=== PATIENT | male | born 1990 | race Hispanic/Latino ===

== ENCOUNTER 2018-11-19 16:38 | Emergency (ER) | payer SELFPAY ==
[2018-11-19] MEDS ORDERED: Lidocaine 1% w/Epinephrine 1:100K 20 ML VIAL ONE (17:15)
[2018-11-19] MEDS ORDERED: Bacitracin Zinc 1 Packet ONE (18:43)
== END 2018-11-19 18:57 | disposition home or self-care (01) ==
LOC: ERS 16:38
DX: S01.81XA Laceration without foreign body of other part of head, initial encounter (principal); S01.111A Laceration without foreign body of right eyelid and periocular area, initial encounter; W22.8XXA Striking against or struck by other objects, initial encounter
CPT/HCPCS: 12051; 13132; J2001

== ENCOUNTER 2019-03-06 12:48 | Inpatient (IN) | payer SELFPAY ==
[2019-03-06 13:25] LABS: #Basophils 0.1 thou/uL (0.0-0.2); #Eosinphils 0.1 thou/uL (0.0-0.7); #Lymphocytes 1.1 thou/uL (1.20-3.40); #Monocytes 0.5 thou/uL (0.11-0.59); #Neutrophils 2.5 thou/uL (1.40-6.50); %Basophils 1.2 % (0.0-1.0); %Eosinophils 2.1 % (0.0-10.0); %Lymphocytes 25.9 % (21.0-51.0); %Monocytes 11.5 % (0.0-10.0); %Neutrophils 59.4 % (42.0-75.0); Mean Corpuscular Volume 91.1 fL (78.0-98.0); Mean Platelet Volume 9.5 fL (7.4-10.4); Platelet Count 163 thou/uL (130-400); RBC Distribution Width 13.1 % (11.5-14.5); Red Blood Cell (RBC) Count 5.15 mill/uL (4.70-6.10); White Blood Cell (WBC) Count 4.2 thou/uL (4.8-10.8)
[2019-03-06 13:39] LABS: ALT (SGPT) 1368 U/L (8-55); AST (SGOT) 806 U/L (5-34); Albumin 4.5 g/dL (3.5-5.0); Alkaline Phosphatase 181 U/L (40-150); Anion Gap 13 mmol/L (10-20); BUN (Urea Nitrogen) 9 mg/dL (8.9-20.6); Bilirubin, Total 4.1 mg/dL (0.2-1.2); Calc. Creatinine Clearance 0 mL/min (70-130); Calcium 9.9 mg/dL (7.8-10.44); Carbon Dioxide 24 mmol/L (22-29); Chloride 99 mmol/L (98-107); Estimated GFR-MDRD 82; Glucose 461 mg/dL (70-105); Potassium 4.2 mmol/L (3.5-5.1); Protein, Total 8.5 g/dL (6.0-8.3); Sodium 132 mmol/L (136-145)
--- NOTE | 2019-03-06 15:33 | ULT ---
ULTRASOUND GALLBLADDER RIGHT UPPER QUADRANT: CLINICAL HISTORY: Elevated bilirubin and liver enzymes. COMPARISON: None. FINDINGS: Pancreas: Obscured by bowel gas. Liver:Heterogeneous echotexture which may be due to hepatic steatosis or hepatocellular disease. Limi luisa evaluation for hepatic masses and intrahepatic biliary dilatation. Right hepatic lobe measures 19.6 cm. Portal vein: Patent with appropriate directional flow. Gallbladder: Echogenic focus within the lumen of the gallbladder, nonshadowing, nonmobile. Findings m ay represent an adherent nonshadowing stone. Additionally, there does appear to be sludge. Gallbladder wall is not thickened. No pericholecystic fluid. Thrasher's sign:Negative. Bile ducts: Limited evaluation due to bowel gas. Right kidney: No hydronephrosis. Right kidney measures 10.7 cm cm in length. IMPRESSION: 1. Hepatomegaly. 2. Increased echotexture of liver which may be due to hepatic steatosis or hepatocellular disease. If there is concern for hepatic masses, liver mass protocol CT can be performed. 3. Sonographic evidence of cholelithiasis and sludge. No evidence for cholecystitis. HIDA scan may be beneficial. 4. Suboptimal evaluation of the common bile duct. Transcribed Date/Time: 03/06/2019 3:38 PM
[2019-03-06 18:59] VITALS: BMI 25.7
[2019-03-06] MEDS ORDERED: Bisacodyl 5 MG TAB PO PRN (19:16)
[2019-03-06] MEDS ORDERED: Dextrose 50% Abboject 50 ML SYRINGE SLOW IVP PRN (19:16)
[2019-03-06] MEDS ORDERED: Dextrose 5% in Water 1,000 ML IV PRN (19:16)
--- NOTE | 2019-03-06 20:31 | HP ---
PRIMARY CARE PROVIDER: Dr. Rocio Mccarthy. CHIEF COMPLAINT: Abnormal liver function tests. HISTORY OF PRESENT ILLNESS: Mr. Zhou is a pleasant 28-year-old gentleman who was seen at [facility] on March 06, 2019. He reports that 2 days ago he went for his annual physical exam. He had blood work done. He was called by the office that he has diabetes mellitus as well as abnormal liver function tests. He was advised to go to the emergency room. The patient reports that he used to drink 6-pack beer daily for 2 years until the end of last year, at which point he decreased the frequency to occasional. He denies any fevers or chills. He denies any recent travel. He denies any nausea, vomiting, or diarrhea. He denies any abdominal pain. The patient also reports that he has been having muscle aches over his back over the last few days. REVIEW OF SYSTEMS: All systems were reviewed and found to be negative except for the pertinent positives mentioned above. ALLERGIES: NO KNOWN DRUG ALLERGIES. CURRENT MEDICATIONS: He takes a medication for diabetes two times a day, is unsure which medication it is. PAST MEDICAL HISTORY: Diabetes mellitus type 2. PAST SURGICAL HISTORY: None. SOCIAL HISTORY: No history of tobacco use or recreational drug use. The patient drinks alcohol occasionally. He works in maintenance. FAMILY HISTORY: Liver disease in his maternal grandfather. PHYSICAL EXAMINATION: GENERAL: On examination, Mr. Zhou is awake and alert, not in acute distress. VITAL SIGNS: Blood pressure is 132/83, pulse 81, respiratory rate 16, and oxygen saturation 100% on room air. He is afebrile. EYES: The patient has scleral icterus. No conjunctival pallor. ENT: Moist mucosal membranes. No oropharyngeal erythema or exudates. NECK: Supple, nontender, trachea is midline. RESPIRATORY: Accessory muscles of breathing are not active. Chest wall movements are symmetric bilaterally. LUNGS: Clear to auscultation without wheeze, rhonchi, or crepitations. CARDIOVASCULAR: S1 and S2 are heard, regular. Peripheral pulses palpable. No carotid bruit. No pericardial rub. ABDOMEN: Soft, nontender. Thrasher sign is negative. No guarding or rigidity. Bowel sounds are heard. NEUROLOGIC: Cranial nerves 2 through 12 are intact. MUSCULOSKELETAL: Power is 5/5 in all 4 extremities. SKIN: No rashes or subcutaneous nodules. LYMPHATIC: No cervical lymphadenopathy. PSYCHIATRIC: Normal mood, normal affect. The patient is oriented to person, place, and time. LABORATORY DATA: Mr. Zhou's labs and investigations were reviewed. He has leukopenia with 4200 white cells, normal hemoglobin, normal platelet count, decreased sodium of 132, normal potassium, elevated glucose of 461, elevated total bilirubin of 4.1, elevated AST of 806, elevated ALT of 1368, elevated alkaline phosphatase of 181, and elevated globulin of 4.0. ASSESSMENT AND PLAN: Mr. Zhou is a pleasant 28-year-old gentleman who was seen at [facility] on March 06, 2019. His problem list includes: 1. Abnormal LFTs: Mr. Zhou is presenting with abnormal LFTs. He will be admitted to the hospital for further management. He had an abdominal ultrasound done, which showed hepatomegaly and increased echotexture of liver, which may be due to hepatic steatosis or hepatocellular disease. Radiologist recommends a liver mass protocol CT if there is concern for hepatic masses. He had sonographic evidence of cholelithiasis and sludge, no evidence for cholecystitis. Common bile duct evaluation was suboptimal. We will check acute hepatitis profile. GI Service has been consulted, we will await their input. 2. Diabetes mellitus type 2: We will start the patient on Accu-Cheks and insulin sliding scale. We will resume home diabetes medication once confirmed. 3. Hyponatremia: Mild, likely asymptomatic. Many thanks for allowing me to participate in your patient's care. Please feel free to contact me with any questions or concerns. LEVEL OF RISK: Moderate. LEVEL OF COMPLEXITY: Moderate. Job ID: [id number]
[2019-03-06 22:30] LABS: HBCM Index 0.07 S/CO (0-0.79); HBSAg Index 0.14 S/CO (0-0.99); Hep A IgM AB Non-Reactive (NonReactive); Hep A IgM S/CO 0.18 S/CO (0-0.79); Hep B Surf Ag Non-Reactive S/CO (NonReactive); Hep C IgG Ab Non-Reactive (NonReactive); Hep C Index 0.11 S/CO (0-0.79); Hepatitis B Core IgM Abs Non-Reactive (NonReactive)
[2019-03-07 00:26] LABS: Acetaminophen Less than 6.0 mcg/mL (10.0-30.0)
[2019-03-07 01:29] LABS: Amphetamine Not Detected (NotDetected); Barbiturates Screen Not Detected (NotDetected); Benzodiazepine Screen Not Detected (NotDetected); Cocaine Metabolite Screen Not Detected (NotDetected); Medtox Control Line Valid? VALID (VALID); Medtox Reader # READER 4; Methadone Not Detected (NotDetected); Methamphetamine Not Detected (NotDetected); Opiate Screen Not Detected (NotDetected); Oxycodone Screen Not Detected (NotDetected); Phencyclidine (PCP) Not Detected (NotDetected); THC/Cannabinoid Screen Not Detected (NotDetected); Tricyclic Screen Not Detected (NotDetected)
--- NOTE | 2019-03-07 03:05 | CON ---
DATE OF CONSULTATION: 03/06/2019 CHIEF COMPLAINT: Abnormal liver tests. HISTORY OF PRESENT ILLNESS: Mr. Zhou is a 28-year-old man who presented to his primary care doctor for routine evaluation at [facility]. He had a liver tests drawn that showed they are significantly elevated, so he was advised to come to the emergency room for further care. He reports he has had some aching discomfort in his lower back bilaterally for the last 2 weeks. His urine has been dark for the last couple of weeks. He has also had some night sweats for the last 2 weeks. He has had no nausea or vomiting. No diarrhea, constipation, or blood in the stool. No weight changes. He states that he was told that his liver tests were mildly elevated related to being overweight back in 2013. He had an ultrasound in the emergency room that showed a prominent liver with heterogeneity and possible gallstones. His viral hepatitis screen was negative. He has had no prior episodes of severely elevated liver tests. PAST MEDICAL HISTORY: Has been otherwise negative. He also was found to have elevated blood glucose with a new diagnosis of diabetes with this blood draw a couple of days ago. PAST SURGICAL HISTORY: Negative. FAMILY HISTORY: Negative for GI malignancy or liver disease. SOCIAL HISTORY: He has cocaine in the remote past. Occasional alcohol. He did drink up to 6 pack a day for a couple of years, but lately over the last several months, only drinks occasionally. No smoking. No recent drug use. ALLERGIES: NO KNOWN DRUG ALLERGIES. MEDICATIONS: Prior to admission, none. He was just prescribed a new medicine for diabetes a couple of days ago. He is unsure what this is. He takes no other supplements, [id number]. REVIEW OF SYSTEMS: Negative x10 systems reviewed except as stated in the history of present illness. PHYSICAL EXAMINATION: VITAL SIGNS: Pulse 87, blood pressure 126/87, temperature is 99.1. GENERAL: He is in no acute distress. Alert and oriented x3. HEENT: Eyes have slight scleral icterus. Oropharynx is clear without lesions. NECK: No cervical or supraclavicular lymphadenopathy. LUNGS: Clear to auscultation bilaterally. HEART: Regular rate and rhythm without murmur. ABDOMEN: Soft, nontender, and nondistended. Bowel sounds are present. EXTREMITIES: No lower extremity edema. NEUROLOGIC: Reveals no asterixis. LABORATORY DATA: Creatinine 1.07, glucose 461, bilirubin 4.1, AST 806, ALT 1368, alkaline phosphatase 181, albumin 4.5, globulin is 4.0 with a total protein of 8.5. Viral hepatitis A IgM is negative. Hepatitis B surface antigen is negative. Hepatitis B core IgM is negative. Hepatitis C antibody is negative. White blood cell count 4.2, hemoglobin 16.0, platelets 163, eosinophilic count is 2.1%. IMAGING: There are possible gallstones by ultrasound. The bile duct was not well visualized. There is hepatic steatosis versus hepatocellular disease as a cause of heterogeneous echotexture to the liver. IMPRESSION: 1. Abnormal liver tests. He has acute hepatocellular injury pattern with ALT over 1000. His acute viral hepatitis screen is negative for A, B and C. Possibilities include toxic liver injury or drug-induced liver injury. We will need to check a urine tox screen. Autoimmune liver disease is probably top of the list given the elevated globulin and insidious onset of these symptoms with no other significant GI symptoms associated. 2. I will send additional blood work looking for other causes of liver disease as well. 3. Cholelithiasis. I doubt that choledocholithiasis is causing the elevated transaminases and bilirubin with only mild elevation in alkaline phosphatase. The common bile duct, however, was not well visualized by ultrasound and this will need further evaluation with MRI. 4. New onset diabetes mellitus. RECOMMENDATIONS: 1. MRCP tomorrow morning. 2. Blood work including a smooth muscle antibody, mitochondrial antibody, alpha-1 antitrypsin level, ceruloplasmin, iron saturation. If those are negative, then we would also check serology for HSV, CMV and EBV. Job ID: [id number]
[2019-03-07 05:57] LABS: #Basophils 0.1 thou/uL (0.0-0.2); #Eosinphils 0.2 thou/uL (0.0-0.7); #Lymphocytes 1.5 thou/uL (1.20-3.40); #Monocytes 0.4 thou/uL (0.11-0.59); #Neutrophils 2.1 thou/uL (1.40-6.50); %Basophils 1.7 % (0.0-1.0); %Eosinophils 4.4 % (0.0-10.0); %Lymphocytes 34.5 % (21.0-51.0); %Monocytes 10.5 % (0.0-10.0); %Neutrophils 48.9 % (42.0-75.0); Hemoglobin 15.6 g/dL (14.0-18.0); Mean Corpuscular HGB CONC 34.6 g/dL (32.0-36.0); Mean Corpuscular Hemoglobin 31.6 pg (27.0-31.0); Mean Corpuscular Volume 91.4 fL (78.0-98.0); Mean Platelet Volume 9.4 fL (7.4-10.4); Platelet Count 151 thou/uL (130-400); RBC Distribution Width 13.4 % (11.5-14.5); Red Blood Cell (RBC) Count 4.94 mill/uL (4.70-6.10); White Blood Cell (WBC) Count 4.2 thou/uL (4.8-10.8)
[2019-03-07 06:14] LABS: ALT (SGPT) 1241 U/L (8-55); AST (SGOT) 782 U/L (5-34); Albumin 4.1 g/dL (3.5-5.0); Alkaline Phosphatase 136 U/L (40-150); Anion Gap 13 mmol/L (10-20); BUN (Urea Nitrogen) 10 mg/dL (8.9-20.6); Bilirubin, Total 3.9 mg/dL (0.2-1.2); Calc. Creatinine Clearance 151 mL/min (70-130); Calcium 9.3 mg/dL (7.8-10.44); Carbon Dioxide 23 mmol/L (22-29); Chloride 100 mmol/L (98-107); Estimated GFR-MDRD Greater than 90; Globulin 3.9 g/dL (2.4-3.5); Glucose 251 mg/dL (70-105); Iron 155 ug/dL (65-175); Iron Binding Capacity, Total 371 mcg/dL (261-462); Potassium 3.8 mmol/L (3.5-5.1); Sodium 132 mmol/L (136-145)
[2019-03-07] MEDS: Enoxaparin Sodium 40 MG/0.4 ML SYRINGE SC SCH (10:15)
[2019-03-07] MEDS ORDERED: Gadobenate Dimeglumine 529 MG/1 ML (20ML VIAL) ONE (12:59)
--- NOTE | 2019-03-07 15:01 | MRI ---
MRI ABDOMEN WITH AND WITHOUT CONTRAST MRCP: Date: 03/07/19 INDICATION: Abnormal liver function tests. Exam is severely limited due to patient motion. Multiple repeat sequences were obtained; however, all sequences are degraded. FINDINGS: Liver, spleen, and pancreas appear unremarkable. Gallbladder and biliary ducts appear unremarkable. N o evidence of biliary duct dilatation. Common duct is not well seen due to its normal size; however, there is no evidence of common duct lesion or dilatation. Stomach and duodenum unremarkable. Visualized bowel loops unremarkable. Aorta normal caliber. No manuel opathy. Visualized adrenal glands and kidneys are unremarkable. IMPRESSION: Limited exam due to patient motion. No abnormality identified. POS: OFF
[2019-03-07] MEDS ORDERED: hydrOXYzine Pamoate 25 mg Capsule PO PRN (16:16)
--- NOTE | 2019-03-07 16:23 | PDOC.HOSPP ---
- Subjective Encounter Date: 03/07/19 Encounter Time: 15:30 Subjective: Pt seen for followup re: abnormal LFTs. Says he feels well, no complaints. - Objective Vital Signs & Weight: Vital Signs (12 hours) Temp Pulse Resp BP Pulse Ox 03/07/19 16:00 98.4 F 78 18 133/80 99 03/07/19 08:30 98 03/07/19 08:00 98.3 F 74 20 138/83 98 Weight Admit Weight 179 lb Weight 179 lb I&O: 03/06/19 03/07/19 03/08/19 06:59 06:59 06:59 Intake Total 400 Balance 400 Result Diagrams: 03/07/19 05:34 03/07/19 05:34 Additional Labs: Accuchecks 03/07/19 03/06/19 05:24 21:02 POC Glucose 208 H 250 H Hospitalist ROS - Review of Systems Cardiovascular: denies: chest pain, palpitations, orthopnea, paroxysmal noc. dyspnea, edema, light headedness Gastrointestinal: denies: nausea, vomiting, abdominal pain, diarrhea, constipation, melena, hematochezia - Medication Medications: Active Medications Generic Name Dose Route Start Last Admin Trade Name Freq PRN Reason Stop Dose Admin Enoxaparin Sodium 40 mg 03/07/19 09:00 03/07/19 10:15 Lovenox SC Not Given 0900 FERN - Exam General Appearance: NAD Eye: scleral icterus ENT: normocephalic atraumatic Neck: supple Heart: RRR Respiratory: CTAB, no rales Gastrointestinal: soft, non-tender, non-distended, normal bowel sounds Neurological: no weakness Psychiatric: normal affect, normal behavior Hosp A/P (1) Abnormal LFTs Code(s): R94.5 - ABNORMAL RESULTS OF LIVER FUNCTION STUDIES Status: Acute (2) DM2 (diabetes mellitus, type 2) Status: Acute - Plan out of bed/ambulate Workup in progress. Follow LFTs. Start diabetic diet. Continue accuchecks, insulin sliding scale. Continue sitagliptin (recently diagnosed diabetes mellitus).
--- NOTE | 2019-03-07 19:48 | PRG ---
DATE OF SERVICE: 03/07/2019 SUBJECTIVE: Mr. Zhou has less lower back discomfort today. He has no nausea, vomiting, or abdominal pain. He is tolerating a solid diet. His urine again was dark this morning, but it becomes more clear when he drinks more water. OBJECTIVE: VITAL SIGNS: Temperature 98.5, pulse 91, and blood pressure 129/79. GENERAL: He is in no acute distress. Alert and oriented x3. Slight scleral icterus. Oropharynx is clear without lesions. No cervical or supraclavicular lymphadenopathy. LUNGS: Clear to auscultation bilaterally. HEART: Regular rate and rhythm without murmur. ABDOMEN: Soft, nontender, nondistended. Bowel sounds are present. EXTREMITIES: No lower extremity edema. LABORATORY DATA: White blood cell count 4.2, hemoglobin 15.6, and platelets 151. Bilirubin 3.9, AST 782, ALT 1241, alkaline phosphatase 136, and albumin 4.1. Toxicology screen was negative. IMPRESSION: Abnormal liver function test. The MRI showed a normal caliber common bile duct. He does have stones in the gallbladder, but this does not appear to be related to his acute elevation of his liver tests. His acute viral hepatitis screen was negative. At this point, I would favor autoimmune hepatitis as the most likely given the elevated globulin and otherwise negative source for severe acute hepatitis with an ALT greater than 1000. Additional blood work is pending including alpha-1 antitrypsin level and ceruloplasmin. His iron saturation is not significantly elevated. We will await the autoimmune markers. If this is negative, then I would check HSV, CMV, and EBV. RECOMMENDATIONS: 1. Recheck liver tests in the morning including INR. 2. Await smooth muscle antibody. 3. If the smooth muscle antibody is negative and SANDOR is negative, then next step would be checking an additional viral study as noted above. Job ID: [id number]
[2019-03-07] MEDS ORDERED: Alogliptin 25 MG TAB PO SCH (20:15)
[2019-03-08] MEDS: HumaLOG 300 UNITS/3 ML VIAL SC PRN ×4 (05:55→20:44)
[2019-03-08 06:49] LABS: #Basophils 0.1 thou/uL (0.0-0.2); #Eosinphils 0.2 thou/uL (0.0-0.7); #Lymphocytes 1.7 thou/uL (1.20-3.40); #Monocytes 0.5 thou/uL (0.11-0.59); #Neutrophils 2.6 thou/uL (1.40-6.50); %Basophils 1.6 % (0.0-1.0); %Eosinophils 3.8 % (0.0-10.0); %Lymphocytes 33.5 % (21.0-51.0); %Monocytes 10.4 % (0.0-10.0); %Neutrophils 50.7 % (42.0-75.0); Mean Corpuscular HGB CONC 32.7 g/dL (32.0-36.0); Mean Corpuscular Volume 91.8 fL (78.0-98.0); Mean Platelet Volume 9.3 fL (7.4-10.4); Platelet Count 175 thou/uL (130-400); Prothrombin Time 13.5 SEC (12.0-14.7); RBC Distribution Width 13.3 % (11.5-14.5); Red Blood Cell (RBC) Count 5.33 mill/uL (4.70-6.10); White Blood Cell (WBC) Count 5.2 thou/uL (4.8-10.8)
[2019-03-08 07:07] LABS: ALT (SGPT) 1271 U/L (8-55); AST (SGOT) 849 U/L (5-34); Albumin 4.2 g/dL (3.5-5.0); Alkaline Phosphatase 154 U/L (40-150); Anion Gap 11 mmol/L (10-20); BUN (Urea Nitrogen) 11 mg/dL (8.9-20.6); Bilirubin, Total 3.3 mg/dL (0.2-1.2); Calc. Creatinine Clearance 142 mL/min (70-130); Calcium 9.2 mg/dL (7.8-10.44); Carbon Dioxide 25 mmol/L (22-29); Chloride 100 mmol/L (98-107); Estimated GFR-MDRD Greater than 90; Glucose 228 mg/dL (70-105); Potassium 3.8 mmol/L (3.5-5.1); Protein, Total 8.2 g/dL (6.0-8.3); Sodium 132 mmol/L (136-145)
[2019-03-08] MEDS: Alogliptin 25 MG TAB PO SCH (08:11)
[2019-03-08] MEDS: Enoxaparin Sodium 40 MG/0.4 ML SYRINGE SC SCH (08:11)
--- NOTE | 2019-03-08 10:58 | PRG ---
DATE OF SERVICE: 03/08/2019 SUBJECTIVE: Mr. Zhou has no abdominal pain. No back pain. No nausea, vomiting, diarrhea, or fever. OBJECTIVE: VITAL SIGNS: Temperature 98.5, pulse is 72, and blood pressure 128/78. GENERAL: He is in no acute distress. Alert and oriented x3. LUNGS: Clear to auscultation bilaterally. HEART: Regular rate and rhythm without murmur. ABDOMEN: Soft, nontender, and nondistended. Bowel sounds are present. EXTREMITIES: No lower extremity edema. LABORATORY DATA: Creatinine 0.88, bilirubin 3.3, AST 849, ALT 1271, and alkaline phosphatase 154. IMPRESSION: Abnormal liver tests with acute hepatocellular injury pattern. I would favor autoimmune hepatitis as being the most likely diagnosis at this point. I am awaiting labs for autoimmune markers. Additional labs for other causes of liver disease are pending as well. RECOMMENDATIONS: 1. We will continue to await lab results. 2. We will check hepatitis B antibody. Job ID: [id number]
[2019-03-08 14:05] LABS: Reference Lab Name LABCORP
--- NOTE | 2019-03-08 16:35 | PDOC.HOSPP ---
- Subjective Encounter Date: 03/08/19 Encounter Time: 09:20 Subjective: Pt seen for followup re: abnormal LFTs. Denies any complaints. - Objective Vital Signs & Weight: Vital Signs (12 hours) Temp Pulse Resp BP Pulse Ox 03/08/19 12:05 98.1 F 67 18 131/84 97 03/08/19 08:00 98.5 F 72 16 128/78 98 Weight Admit Weight 179 lb Weight 179 lb I&O: 03/07/19 03/08/19 03/09/19 06:59 06:59 06:59 Intake Total 400 Balance 400 Result Diagrams: 03/08/19 06:09 03/08/19 06:09 Additional Labs: Accuchecks 03/08/19 03/08/19 03/07/19 11:44 05:54 21:00 POC Glucose 286 H 212 H 264 H 03/07/19 03/07/19 16:07 12:27 POC Glucose 244 H 230 H Labs and MARs reviewed by az Hospitalist ROS - Review of Systems Cardiovascular: denies: chest pain, palpitations, orthopnea, paroxysmal noc. dyspnea, edema, light headedness Gastrointestinal: denies: nausea, vomiting, abdominal pain, diarrhea, constipation, melena, hematochezia - Medication Medications: Active Medications Generic Name Dose Route Start Last Admin Trade Name Freq PRN Reason Stop Dose Admin Alogliptin Benzoate 25 mg 03/08/19 09:00 03/08/19 08:11 Alogliptin PO 25 mg DAILY FERN Administration Enoxaparin Sodium 40 mg 03/07/19 09:00 03/08/19 08:11 Lovenox SC Not Given 09 [facility] Insulin Human Lispro 0 units 03/06/19 19:16 03/08/19 12:16 Humalog SC 4 unit .MILD SLIDING SCALE PRN Administration Mild Correctional Scale - Exam General Appearance: NAD Eye: scleral icterus ENT: no oropharyngeal lesions Neck: supple Heart: RRR, no gallops Respiratory: CTAB, no ronchi Gastrointestinal: soft, non-tender Extremities: no clubbing Musculoskeletal: normal tone, normal strength Psychiatric: normal affect, normal behavior Hosp A/P (1) Abnormal LFTs Code(s): R94.5 - ABNORMAL RESULTS OF LIVER FUNCTION STUDIES Status: Acute (2) DM2 (diabetes mellitus, type 2) Status: Acute - Plan plan discussed w/ family Workup in progress re; abnormal LFTs. GI service following. Continue 1800 jemima diet. Continue sitagliptin, continue accuchecks, switch to moderate insulin sliding scale.
[2019-03-09] MEDS: HumaLOG 300 UNITS/3 ML VIAL SC PRN ×3 (05:16→21:18)
[2019-03-09 05:41] LABS: #Basophils 0.1 thou/uL (0.0-0.2); #Eosinphils 0.2 thou/uL (0.0-0.7); #Monocytes 0.6 thou/uL (0.11-0.59); #Neutrophils 2.3 thou/uL (1.40-6.50); %Basophils 1.3 % (0.0-1.0); %Eosinophils 4.2 % (0.0-10.0); %Lymphocytes 38.6 % (21.0-51.0); %Monocytes 11.8 % (0.0-10.0); %Neutrophils 44.2 % (42.0-75.0); Hemoglobin 15.6 g/dL (14.0-18.0); Mean Corpuscular HGB CONC 33.7 g/dL (32.0-36.0); Mean Corpuscular Volume 91.8 fL (78.0-98.0); Mean Platelet Volume 9.2 fL (7.4-10.4); Platelet Count 174 thou/uL (130-400); RBC Distribution Width 13.3 % (11.5-14.5); Red Blood Cell (RBC) Count 5.04 mill/uL (4.70-6.10); White Blood Cell (WBC) Count 5.1 thou/uL (4.8-10.8)
[2019-03-09 06:00] LABS: ALT (SGPT) 1143 U/L (8-55); AST (SGOT) 705 U/L (5-34); Alkaline Phosphatase 148 U/L (40-150); Anion Gap 10 mmol/L (10-20); BUN (Urea Nitrogen) 10 mg/dL (8.9-20.6); Bilirubin, Total 3.3 mg/dL (0.2-1.2); Calc. Creatinine Clearance 136 mL/min (70-130); Calcium 9.2 mg/dL (7.8-10.44); Carbon Dioxide 25 mmol/L (22-29); Chloride 101 mmol/L (98-107); Estimated GFR-MDRD Greater than 90; Globulin 3.7 g/dL (2.4-3.5); Glucose 240 mg/dL (70-105); Potassium 3.8 mmol/L (3.5-5.1); Protein, Total 7.7 g/dL (6.0-8.3); Sodium 132 mmol/L (136-145)
[2019-03-09] MEDS: Enoxaparin Sodium 40 MG/0.4 ML SYRINGE SC SCH (07:37)
[2019-03-09] MEDS: Alogliptin 25 MG TAB PO SCH (07:37)
[2019-03-09 12:09] LABS: Smooth Muscle Total ABS 12 Units (0-19)
--- NOTE | 2019-03-09 13:02 | PRG ---
DATE OF SERVICE: 03/09/2019 SUBJECTIVE: Mr. Zhou has no abdominal pain. No pruritus. No nausea or vomiting. OBJECTIVE: VITAL SIGNS: Temperature 98.1, pulse 70, blood pressure 117/72. GENERAL: He is in no acute distress. Alert and oriented x3. LUNGS: Clear to auscultation bilaterally. HEART: Regular rate and rhythm without murmur. ABDOMEN: Soft, nontender, and nondistended. Bowel sounds are present. EXTREMITIES: No lower extremity edema. LABORATORY DATA: White blood cell count 5.1, hemoglobin 15.6, platelets 174. INR 1.0. Bilirubin 3.3, AST 705, ALT 1143, alkaline phosphatase 148, creatinine 0.92, albumin 4.0. IMPRESSION: Abnormal liver function tests with acute hepatocellular injury pattern. His viral hepatitis A, B, and C are negative. Toxicology screen was negative. His globulin has been elevated, and the top of my differential was autoimmune hepatitis; however, this morning his smooth muscle antibodies come back normal level at 12. Still we will need to check mitochondrial antibody and I would add a total immunoglobulin G level at this point. The cause of his liver disease is not determined. He might ultimately require a liver biopsy as a next step. RECOMMENDATIONS: 1. Check total immunoglobulin G level. 2. Await mitochondrial antibody and antinuclear antibody. Job ID: [id number]
[2019-03-09 15:10] LABS: Alpha-1-Antitrypsin 152 mg/dL (90-200)
--- NOTE | 2019-03-09 22:49 | PDOC.HOSPP ---
- Subjective Encounter Date: 03/09/19 Encounter Time: 14:00 Subjective: Patient seen and examined for abn LFTs. No fever/N/V. No new complaints. No overnight events - Objective Vital Signs & Weight: Vital Signs (12 hours) Temp Pulse Resp BP Pulse Ox 03/09/19 19:32 97.9 F 73 16 130/75 99 Weight Admit Weight 179 lb Weight 179 lb I&O: 03/08/19 03/09/19 03/10/19 06:59 06:59 06:59 Intake Total 1500 Balance 1500 Result Diagrams: 03/09/19 05:07 03/09/19 05:07 Additional Labs: Accuchecks 03/09/19 03/09/19 03/09/19 20:57 11:17 04:24 POC Glucose 307 H 237 H 243 H Laboratory Tests 03/07/19 03/07/19 03/07/19 05:34 05:34 05:34 Ferritin 333.74 H Total Bilirubin 3.9 H Sogaf-6-Lytytmtnkkh 152 IgG Total Smooth Muscle Ab Titer 12 03/10/19 04:40 Ferritin Total Bilirubin Tsuwt-9-Rrzeijdkarq IgG Total 1807.00 Smooth Muscle Ab Titer Radiology Reviewed by me: Yes (MRI - reviewed) Hospitalist ROS - Review of Systems Respiratory: denies: cough, dry, shortness of breath, hemoptysis, SOB with excertion, pleuritic pain, sputum, wheezing, other Cardiovascular: denies: chest pain, palpitations, orthopnea, paroxysmal noc. dyspnea, edema, light headedness, other - Medication Medications: Active Medications Generic Name Dose Route Start Last Admin Trade Name Freq PRN Reason Stop Dose Admin Insulin Human Lispro 0 units 03/06/19 23:39 03/09/19 21:18 Humalog SC 4 unit .BEDTIME SLIDING SC PRN Administration Bedtime Correctional Scale Insulin Human Lispro 0 units 03/08/19 16:40 03/09/19 11:49 Humalog SC 4 units .MODERATE SLIDING SC PRN Administration Moderate Correctional Scale - Exam General Appearance: NAD Heart: RRR, no rubs Respiratory: CTAB, no rales Gastrointestinal: soft, non-tender, normal bowel sounds Extremities: no edema Hosp A/P (1) Abnormal LFTs Code(s): R94.5 - ABNORMAL RESULTS OF LIVER FUNCTION STUDIES Status: Acute (2) DM2 (diabetes mellitus, type 2) Status: Chronic (3) Hyponatremia Code(s): E87.1 - HYPO-OSMOLALITY AND HYPONATREMIA Status: Acute - Plan DVT proph w/SCDs Cont to monitor LFTs in AM Await w/u for abn LFTs Add Lantus 10 units daily Hold Alogliptin
[2019-03-10 05:56] LABS: ALT (SGPT) 1121 U/L (8-55); AST (SGOT) 635 U/L (5-34); Albumin 4.1 g/dL (3.5-5.0); Alkaline Phosphatase 144 U/L (40-150); Bilirubin, Direct 2.3 mg/dL (0.1-0.3); Bilirubin, Total 3.3 mg/dL (0.2-1.2); Protein, Total 7.9 g/dL (6.0-8.3)
[2019-03-10] MEDS: Insulin Glargine 10 UNITS in Pre-Filled Syringe 1 EACH SC SCH (07:41)
[2019-03-10] MEDS: HumaLOG 300 UNITS/3 ML VIAL SC PRN ×2 (12:50→16:52)
--- NOTE | 2019-03-10 20:19 | PDOC.HOSPP ---
- Subjective Encounter Date: 03/10/19 Encounter Time: 18:30 Subjective: Patient seen and examined for abn LFTs. No N/V. No new complaints. No overnight events - Objective Vital Signs & Weight: Vital Signs (12 hours) Temp Pulse Resp BP Pulse Ox 03/10/19 19:35 97.9 F 69 16 134/81 99 Weight Admit Weight 179 lb Weight 179 lb I&O: 03/09/19 03/10/19 03/11/19 06:59 06:59 06:59 Intake Total 2500 1500 Balance 2500 1500 Result Diagrams: 03/09/19 05:07 03/09/19 05:07 Additional Labs: Accuchecks 03/10/19 03/10/19 03/10/19 19:53 16:42 11:55 POC Glucose 121 H 186 H 249 H 03/10/19 03/09/19 03/09/19 05:55 20:57 16:54 POC Glucose 148 H 307 H 140 H Hospitalist ROS - Review of Systems Respiratory: denies: cough, dry, shortness of breath, hemoptysis, SOB with excertion, pleuritic pain, sputum, wheezing, other Cardiovascular: denies: chest pain, palpitations, orthopnea, paroxysmal noc. dyspnea, edema, light headedness, other - Medication Medications: Active Medications Generic Name Dose Route Start Last Admin Trade Name Freq PRN Reason Stop Dose Admin Insulin Glargine 10 units/ 0.1 mls @ 0 mls/hr 03/10/19 09:00 03/10/19 07:41 Miscellaneous Medication SC 0.1 mls QAM FERN Administration Insulin Human Lispro 0 units 03/06/19 23:39 03/09/19 21:18 Humalog SC 4 unit .BEDTIME SLIDING SC PRN Administration Bedtime Correctional Scale Insulin Human Lispro 0 units 03/08/19 16:40 03/10/19 16:52 Humalog SC 2 units .MODERATE SLIDING SC PRN Administration Moderate Correctional Scale - Exam General Appearance: NAD Neck: supple, no JVD Heart: RRR, no rubs Respiratory: CTAB, no rales Gastrointestinal: soft, non-tender, normal bowel sounds Extremities: no edema Hosp A/P (1) Abnormal LFTs Code(s): R94.5 - ABNORMAL RESULTS OF LIVER FUNCTION STUDIES Status: Acute (2) DM2 (diabetes mellitus, type 2) Status: Chronic (3) Hyponatremia Code(s): E87.1 - HYPO-OSMOLALITY AND HYPONATREMIA Status: Acute - Plan DVT proph w/SCDs Liver biopsy in AM Cont Lantus 10 units daily AM labs Ambulate
[2019-03-10] MEDS ORDERED: Insulin Glargine 10 UNITS in Pre-Filled Syringe 1 EACH SC SCH (21:00)
--- NOTE | 2019-03-11 00:49 | HP ---
SUBJECTIVE: Mr. Zhou has no acute complaints. No nausea, vomiting, abdominal pain, diarrhea, constipation or weight loss. No jaundice or itching. PHYSICAL EXAMINATION: VITAL SIGNS: Temperature 98.6, pulse 83, blood pressure 115/76. GENERAL: He is in no acute distress. Alert and oriented x3. LUNGS: Clear to auscultation bilaterally. HEART: Regular rate and rhythm without murmur. ABDOMEN: Soft, nontender, nondistended. Bowel sounds are present. EXTREMITIES: No lower extremity edema. LABORATORY DATA: Bilirubin is 3.3, AST 635, ALT 1121, alkaline phosphatase 144. IMPRESSION: 1. Abnormal liver function tests. He has a significant acute hepatocellular injury pattern with transaminases over 1000. The etiology is yet to be determined. The IgG is at the upper limits of normal, but his smooth muscle antibody is normal. Overall, hepatitis A, B, and C are negative. Globulin level was elevated, so again concern for autoimmune hepatitis still consideration. Given the normal smooth muscle antibody, this will move down the list of possibilities. At this point, the etiology is undetermined. 2. New onset diabetes mellitus requiring insulin. RECOMMENDATIONS: 1. Liver biopsy tomorrow. 2. Await alpha-1 antitrypsin level and mitochondrial antibody and hepatitis C antibody. Job ID: [id number]
[2019-03-11 06:50] LABS: Hemoglobin 15.9 g/dL (14.0-18.0); INR-International Normal Ratio 1.1; Mean Corpuscular HGB CONC 33.4 g/dL (32.0-36.0); Mean Corpuscular Hemoglobin 30.7 pg (27.0-31.0); Mean Platelet Volume 9.3 fL (7.4-10.4); PTT 29.4 SEC (22.9-36.1); Platelet Count 173 thou/uL (130-400); RBC Distribution Width 13.3 % (11.5-14.5); Red Blood Cell (RBC) Count 5.17 mill/uL (4.70-6.10); White Blood Cell (WBC) Count 4.8 thou/uL (4.8-10.8)
[2019-03-11 07:06] LABS: ALT (SGPT) 1005 U/L (8-55); AST (SGOT) 532 U/L (5-34); Alkaline Phosphatase 159 U/L (40-150); Anion Gap 13 mmol/L (10-20); BUN (Urea Nitrogen) 11 mg/dL (8.9-20.6); Bilirubin, Direct 1.8 mg/dL (0.1-0.3); Bilirubin, Total 2.5 mg/dL (0.2-1.2); Calc. Creatinine Clearance 146 mL/min (70-130); Calcium 9.2 mg/dL (7.8-10.44); Carbon Dioxide 22 mmol/L (22-29); Chloride 104 mmol/L (98-107); Estimated GFR-MDRD Greater than 90; Glucose 166 mg/dL (70-105); Potassium 4.2 mmol/L (3.5-5.1); Protein, Total 7.7 g/dL (6.0-8.3); Sodium 135 mmol/L (136-145)
[2019-03-11 08:35] LABS: Band 3 % (5-11); Eosinophils 5 % (0-10); Lymphocytes 43 % (21-51); MDiff Complete? YES; Monocytes 3 % (0-10); Neutrophil 45 % (42-75); RBC Morphology Normal; Reactive Lymphocytes 1 % (0-10)
[2019-03-11] MEDS ORDERED: Fentanyl 100 MCG/2 ML VIAL ONE (10:25)
[2019-03-11] MEDS ORDERED: Midazolam HCl 2 mg/2 ml Vial ONE (10:25)
[2019-03-11] MEDS ORDERED: Sodium Bicarbonate 2.5 MEQ/5 ML VIAL ONE (10:25)
[2019-03-11] MEDS ORDERED: Sodium Chloride 0.9% 10 ML ONE (10:26)
--- NOTE | 2019-03-11 14:18 | ULT ---
US Hepatic Bx History: Acute hepatitis. Comparison: MRI abdomen March 07, 2019 Findings: Patient was brought to the ultrasound suite. All questions were answered. Informed consent was obtained. Timeout performed. The patient's right abdomen was prepped and draped in normal sterile fashion. Using ultrasound guidan ce a total of 7 mL of lidocaine was instilled into the superficial and deep soft tissues. Small incision was made. Using an 18-gauge needle at total of (2) 22 mm cores was obtained. Patient t olerated the procedure well without complication. Impression: Technically successful ultrasound-guided random liver biopsy.
--- NOTE | 2019-03-11 15:27 | PDOC.HOSPP ---
- Subjective Encounter Date: 03/11/19 Encounter Time: 07:00 Subjective: Patient seen and examined for elevated LFTs. No N/V or abd pain. No new complaints. No overnight events - Objective Vital Signs & Weight: Vital Signs (12 hours) Temp Pulse Resp BP BP Pulse Ox 03/11/19 11:00 98.0 F 70 20 123/83 91 L 03/11/19 08:00 100 03/11/19 07:39 97.9 F 75 18 117/76 100 Weight Admit Weight 179 lb Weight 179 lb I&O: 03/10/19 03/11/19 03/12/19 06:59 06:59 06:59 Intake Total 2500 1999 240 Balance 2500 1999 240 Result Diagrams: 03/11/19 06:06 03/11/19 06:06 Additional Labs: Accuchecks 03/11/19 03/11/19 03/10/19 11:08 04:19 19:53 POC Glucose 149 H 134 H 121 H 03/10/19 16:42 POC Glucose 186 H Laboratory Tests 03/11/19 06:06 Total Bilirubin 2.5 H Direct Bilirubin 1.8 H AST 532 H ALT 1005 H Alkaline Phosphatase 159 H Hospitalist ROS - Review of Systems Cardiovascular: denies: chest pain, palpitations, orthopnea, paroxysmal noc. dyspnea, edema, light headedness, other Gastrointestinal: denies: nausea, vomiting, abdominal pain, diarrhea, constipation, melena, hematochezia, other - Medication Medications: Active Medications Generic Name Dose Route Start Last Admin Trade Name Freq PRN Reason Stop Dose Admin Insulin Glargine 10 units/ 0.1 mls @ 0 mls/hr 03/10/19 09:00 03/10/19 07:41 Miscellaneous Medication SC 0.1 mls QAM FERN Administration Insulin Human Lispro 0 units 03/06/19 23:39 03/09/19 21:18 Humalog SC 4 unit .BEDTIME SLIDING SC PRN Administration Bedtime Correctional Scale Insulin Human Lispro 0 units 03/08/19 16:40 03/10/19 16:52 Humalog SC 2 units .MODERATE SLIDING SC PRN Administration Moderate Correctional Scale - Exam General Appearance: NAD Heart: RRR, no rubs Respiratory: CTAB, no rales Gastrointestinal: soft, non-tender, normal bowel sounds Extremities: no edema Hosp A/P (1) Abnormal LFTs Code(s): R94.5 - ABNORMAL RESULTS OF LIVER FUNCTION STUDIES Status: Acute (2) DM2 (diabetes mellitus, type 2) Status: Chronic (3) Hyponatremia Code(s): E87.1 - HYPO-OSMOLALITY AND HYPONATREMIA Status: Acute - Plan Liver biopsy today Cont Lantus 10 units daily LFTs in AM
--- NOTE | 2019-03-11 16:05 | PRG ---
DATE OF SERVICE: 03/11/2019 SUBJECTIVE: Mr. Zhou has no abdominal pain other than mild pain around the biopsy site. No nausea, vomiting, or jaundice, or pruritus. Overall, he remains asymptomatic. OBJECTIVE: VITAL SIGNS: Temperature 98.0, pulse 70, blood pressure 123/83. GENERAL: He is in no acute distress. Alert and oriented x3. LUNGS: Clear to auscultation bilaterally. HEART: Regular rate and rhythm without murmur. ABDOMEN: Soft, nontender, nondistended. Bowel sounds are present. EXTREMITIES: No lower extremity edema. LABORATORY DATA: INR is 1.1. Bilirubin 2.5, AST 532, ALT 1005. IMPRESSION: Abnormal liver tests with acute hepatocellular injury pattern with ALT over 1000. Viral hepatitis screen for A, B, and C are negative. Hepatitis E antibody is negative. His smooth muscle antibody is negative. His IgG, however, still at upper limits of normal range. The cause of acute hepatitis is not determined. He ultimately underwent liver biopsy this morning. He is asymptomatic and we are awaiting the biopsy results. RECOMMENDATIONS: 1. I would monitor him overnight tonight and if he remains asymptomatic tomorrow and his labs continued to trend down tomorrow, he should be able to be discharged home and then follow up in the office to go over the liver biopsy results. 2. Recheck his liver tests in the morning. If he is doing well, we can discharge home to follow up in GI clinic to go over the biopsy results. Job ID: [id number]
[2019-03-11 16:16] LABS: ANA Symphony (Qualitative) Negative (Negative); ANA Symphony (Quantitative) 0.2 Ratio (< 0.7 Negative); EliA Vaculitis New Method **** NEW METHOD ****; Mitochondrial Ab 1.2 U/mL (<4 Negative)
[2019-03-11] MEDS: Insulin Glargine 10 UNITS in Pre-Filled Syringe 1 EACH SC SCH (17:52)
[2019-03-11] MEDS: HumaLOG 300 UNITS/3 ML VIAL SC PRN (21:09)
[2019-03-12] MEDS ORDERED: Ibuprofen 200 MG TAB PO SCH (02:00)
[2019-03-12 05:33] LABS: ALT (SGPT) 884 U/L (8-55); AST (SGOT) 445 U/L (5-34); Albumin 3.9 g/dL (3.5-5.0); Alkaline Phosphatase 131 U/L (40-150); Bilirubin, Total 2.9 mg/dL (0.2-1.2); Protein, Total 7.6 g/dL (6.0-8.3)
[2019-03-12 08:01] VITALS: TEMP 98
[2019-03-12] MEDS: Insulin Glargine 10 UNITS in Pre-Filled Syringe 1 EACH SC SCH (08:48)
--- NOTE | 2019-03-12 11:31 | DIS ---
DATE OF ADMISSION: 03/06/2019 DATE OF DISCHARGE: 03/12/2019 DISCHARGE DISPOSITION: Home. DISCHARGE FOLLOWUP: 1. Follow up with primary care physician in 1 week. 2. Follow up with Gastroenterology, Dr. Alonzo, next week for liver biopsy report. ALLERGIES: THE PATIENT DENIES ANY DRUG ALLERGIES. DISCHARGE MEDICATIONS: Januvia as directed. DISCHARGE INSTRUCTIONS: The patient was advised to avoid hepatotoxic medications. Repeat LFTs after 1 week is recommended. Primary care physician advised to follow. DIAGNOSTIC TESTS: Total bilirubin on admission was 4.1, at discharge 2.9. AST on admission was 806, at discharge 445. ALT on admission was 1368, at discharge is 884. Alkaline phosphatase on admission 181, at discharge 131. Sodium 135, albumin 4.2, ferritin 334, TIBC of 371. Alpha-1 antitrypsin was normal at 152. SANDOR screen was negative. Smooth muscle antibody was negative. Total IgG was 1807. Hepatitis profile was negative. TEST PENDING AT DISCHARGE: Hepatitis E, IgM and IgG. Liver biopsy report is also pending at this time. BRIEF HOSPITAL COURSE: The patient is a 28-year-old male, who presented to the emergency room on March 06 with abnormal labs. He underwent annual physical exam 2 days prior to admission that showed abnormal LFTs. The patient used to be an alcoholic in the past, however, he currently drinks alcohol occasionally. No nausea, vomiting, or diarrhea was reported. Please refer to the History and Physical for further details. The patient was admitted to the hospital with a diagnosis of abnormal liver test with acute hepatocellular injury pattern. He underwent workup as discussed above. Yesterday, he underwent liver biopsy without any complication. His LFTs have gradually improved. He will be discharged later today once cleared by Gastroenterology. FINAL DIAGNOSES: 1. Abnormal liver chemistries in the hepatocellular injury pattern. 2. Diabetes mellitus type 2. 3. Hyponatremia. 4. History of alcohol abuse in the past. 5. Leukopenia on admission, resolved. PLAN: Plan of care was discussed with the patient in detail, he stated understanding. Job ID: [id number]
[2019-03-12 12:54] VITALS: BP 126/77
== END 2019-03-12 13:18 | disposition home or self-care (01) | DRG 442 ==
LOC: ERS 12:48 → 2SW 16:18 → OBSVTOIN 16:18 → T4-A 20:06
PROVIDERS: ADMIT Internal Medicine; ATTEND Internal Medicine
PROC: 0FB03ZX Excision of Liver, Percutaneous Approach, Diagnostic (ICD-10-PCS; principal; 2019-03-11)
DX: K76.89 Other specified diseases of liver (principal); E87.1 Hypo-osmolality and hyponatremia; E11.9 Type 2 diabetes mellitus without complications; Z79.84 Long term (current) use of oral hypoglycemic drugs; D72.819 Decreased white blood cell count, unspecified
CPT/HCPCS: 36415; 36416; 47000; 74183; 76705; 76942; 80048; 80053; 80074; 80076; 80306; 80307; 82103; 82104; 82728; 83516; 83540; 83550; 85025; 85610; 85730; 86038; 86225; 88307; 88313; A9577; J1610; J1650; J1815; J2250; J3010